=== PATIENT | female | born 1940 ===

== ENCOUNTER 2019-05-29 08:43 | Outpatient (CLI) | payer OTHER ==
[~2019-05-29] VITALS: Ht 157.5 cm; Wt 64.4 kg
== END 2019-05-29 16:02 | disposition home or self-care (01) ==
LOC: OFIC 805 08:43
DX: H92.01 Otalgia, right ear (principal); H93.11 Tinnitus, right ear; H61.23 Impacted cerumen, bilateral; G44.309 Post-traumatic headache, unspecified, not intractable

== ENCOUNTER 2019-06-05 07:12 | Outpatient (CLI) | payer OTHER | END 2019-06-05 07:20 | disposition home or self-care (01) | LOC: TOM 07:12 | DX: H93.11 Tinnitus, right ear (principal); H92.01 Otalgia, right ear | CPT/HCPCS: 70480; 70553; A9575; 70552 ==

== ENCOUNTER 2019-06-05 09:12 | Outpatient (CLI) | payer OTHER | END 2019-06-05 09:19 | disposition home or self-care (01) | LOC: LAB 09:12 | DX: N20.0 Calculus of kidney (principal) ==